=== PATIENT | female | born 1995 | race Caucasian/White ===

== ENCOUNTER 2020-05-04 20:06 | Emergency (ER) | payer OTHER ==
[~2020-05-04] VITALS: Ht 162.6 cm; Wt 59.0 kg
[2020-05-04] MEDS ORDERED: PRENATABS FA T1 EACH PO (20:34)
== END 2020-05-04 21:11 | disposition home or self-care (01) ==
LOC: ER 20:06
DX: O26.891 Other specified pregnancy related conditions, first trimester (principal); S43.084A Other dislocation of right shoulder joint, initial encounter; X58.XXXA Exposure to other specified factors, initial encounter; Z3A.11 11 weeks gestation of pregnancy; Y93.89 Activity, other specified; Y92.89 Other specified places as the place of occurrence of the external cause; Y99.8 Other external cause status